=== PATIENT | male | born 1970 | race Caucasian/White ===

== ENCOUNTER 2017-11-17 12:26 | Emergency (ER) | payer OTHER, BC ==
[~2017-11-17] VITALS: Ht 195.6 cm; Wt 129.3 kg
[~2017-11-17 12:26] MED LIST: ASPI325 PO; IBUP600; LEVO750 PO; Ventolin Soln3 ML INH
[2017-11-17] MEDS ORDERED: LISI5 PO (13:02)
[2017-11-17] MEDS ORDERED: Keflex500 MG PO (15:25)
== END 2017-11-17 14:56 | disposition home or self-care (01) ==
LOC: ER 12:26
DX: S90.31XA Contusion of right foot, initial encounter (principal); L03.115 Cellulitis of right lower limb; Z88.0 Allergy status to penicillin; Z79.51 Long term (current) use of inhaled steroids; Z79.82 Long term (current) use of aspirin; Z79.899 Other long term (current) drug therapy; V49.9XXA Car occupant (driver) (passenger) injured in unspecified traffic accident, initial encounter
CPT/HCPCS: 73590; 73630; 93971; 99284

== ENCOUNTER 2018-01-30 05:52 | Day surgery (SDC) | payer BC ==
[~2018-01-30] VITALS: Ht 188 cm; Wt 119.0 kg
[~2018-01-30 05:52] MED LIST changes: +ALLER-TEC D 5-1 EACH PO; +ASPI81CH PO; +ATOR20 PO; +CARV3.125 PO; +Keflex500 MG PO; +LISI5 PO; +TORSE20 PO; +Tessalon200 MG PO
== END 2018-01-30 16:52 | disposition home or self-care (01) ==
LOC: MHTC 05:52
PROC: 4A023N8 Measurement of Cardiac Sampling and Pressure, Bilateral, Percutaneous Approach (ICD-10-PCS; principal; 2018-01-30)
PROC: B211YZZ Fluoroscopy of Multiple Coronary Arteries using Other Contrast (ICD-10-PCS; principal; 2018-01-30)
DX: I34.0 Nonrheumatic mitral (valve) insufficiency (principal); I34.1 Nonrheumatic mitral (valve) prolapse; R06.02 Shortness of breath; I10 Essential (primary) hypertension; G47.30 Sleep apnea, unspecified; E78.5 Hyperlipidemia, unspecified; G47.33 Obstructive sleep apnea (adult) (pediatric)
CPT/HCPCS: 93460; 99152; 99153; C1769; C1894; J1644; J2250; J3010; J7030; Q9967

== ENCOUNTER → 2023-01-21 | Outpatient (CLI) | payer BC | LOC: LAB SHORT 14:43 → PLD 14:43 | DX: R23.8 Other skin changes (principal); L81.9 Disorder of pigmentation, unspecified; R23.4 Changes in skin texture | CPT/HCPCS: 88312; 88342 ==